=== PATIENT | female | born 2000 | race Caucasian/White ===

== ENCOUNTER 2023-04-09 20:05 | Emergency (ER) | payer BC ==
[~2023-04-09] VITALS: Ht 167.6 cm; Wt 63.6 kg
[2023-04-09 20:12] VITALS: TEMP 97.4
[2023-04-09] MEDS ORDERED: Iohexol 300 - 100 ML VIAL IV ONE (23:12)
[2023-04-09] MEDS ORDERED: NS 60 ML IV ONE (23:14)
[2023-04-09 23:45] VITALS: BP 129/76; PULSE 74
== END 2023-04-09 23:45 | disposition home or self-care (01) ==
LOC: COL.ER 20:05
PROVIDERS: Nurse Practitioner Primary Care
DX: K59.00 Constipation, unspecified (principal)
CPT/HCPCS: Q9967